=== PATIENT | female | born 1935 | race Caucasian/White ===

== ENCOUNTER 2017-03-11 13:49 | Emergency (ER) | payer MEDICARE, OTHER ==
[2017-03-11 15:27] VITALS: BP 177/90
--- NOTE | 2017-03-11 16:18 | UC ---
UC General HPI - HPI Summary HPI Summary: complaint of rash that started on her left side fo neck 2 days ago has become more swollen and painful someitmes it is extremely itchy thinks she might have gotrten bite by a spider denies fever or chills not taking any medication for pain - History of Current Complaint Chief Complaint: UCSkin Stated Complaint: RASH Time Seen by Provider: 03/11/17 16:11 Hx Obtained From: Patient - Allergy/Home Medications Allergies/Adverse Reactions: Allergies Allergy/AdvReac Type Severity Reaction Status Date / Time Penicillins Allergy Rash Verified 07/17/15 16:09 PMH/Surg Hx/FS Hx/Imm Hx Previously Healthy: Yes - glaucoma Cardiovascular History: Hypertension Respiratory History: COPD - Surgical History Surgical History: Yes Surgery Procedure, Year, and Place: LEFT ANKLE ORIF. Umbilical hernia repair. Tubal ligation. Cataract extraction. Cholecystectomy - Family History Known Family History: Positive: Cardiac Disease - Father , Hypertension - Sister Negative: Diabetes Family History: No FHx of COPD - Social History Occupation: Retired Lives: With Family Alcohol Use: Rare Substance Use Type: None Smoking Status (MU): Former Smoker When Did the Patient Quit Smoking/Using Tobacco: 1987 - Immunization History Most Recent Influenza Vaccination: 2016 Most Recent Tetanus Shot: up to date Most Recent Pneumonia Vaccination: 2016 Review of Systems Constitutional: Negative Skin: Rash Eyes: Negative ENT: Negative Respiratory: Negative Cardiovascular: Negative Gastrointestinal: Negative Genitourinary: Negative Motor: Negative Neurovascular: Negative Musculoskeletal: Negative Neurological: Negative Psychological: Negative All Other Systems Reviewed And Are Negative: Yes Physical Exam Triage Information Reviewed: Yes Appearance: No Pain Distress, Well-Nourished Vital Signs: Initial Vital Signs Temp 99.2 F 03/11/17 15:24 Pulse 78 03/11/17 15:24 Resp 16 03/11/17 15:24 BP 177/90 03/11/17 15:24 Pulse Ox 99 03/11/17 15:24 Vital Signs Reviewed: Yes Eyes: Positive: Conjunctiva Clear ENT: Positive: Pharynx normal, TMs normal Neck: Positive: No Lymphadenopathy Respiratory: Positive: Lungs clear, Normal breath sounds, No respiratory distress, No accessory muscle use Cardiovascular: Positive: RRR, No Murmur, Pulses Normal, Brisk Capillary Refill Abdomen Description: Positive: Nontender, Soft Bowel Sounds: Positive: Present Musculoskeletal: Positive: No Edema Neurological: Positive: Alert Psychological Exam: Normal Skin: Positive: Other - left side if neck -[id number] area of erythema surrounding insect bite site Course/Dx - Course Course Of Treatment: exam completed. will start on bactrim-discussed with pt that if area of erythema expands past marked area or gets a fever she will seek care in the emergency room - Differential Dx - Multi-Symptom Provider Diagnoses: cellulitis- left side of neck, elevated blood pressure Discharge - Discharge Plan Condition: Stable Disposition: HOME Prescriptions: Sulfamethox/Trimethoprim DS* [Bactrim DS 800/160 TAB*] 1 tab PO BID #14 tab Patient Education Materials: Cellulitis (ED) Referrals: Nabeel Ventura MD [Primary Care Provider] - Additional Instructions: Please start antibiotic as directed Increase fluids and rest Take acetaminophen or ibuprofen for fever or pain Please review your discharge instructions. If your symptoms do not improve please call your primary care provider or return to urgent care. CELLULITIS What is Cellulitis? Cellulitis is a bacterial infection of the skin and, sometimes, of the tissues beneath the skin. The skin normally has many types of bacteria on it, but intact skin is an effective barrier that keeps bacteria from entering and growing within the body. When there is a break in the skin, bacteria can enter the body and grow there, causing infection. The infection usually affects outer layers of the skin first, and then spreads deeper into body tissues. Cellulitis can affect any area of the body covered by skin, but it is most common on the face or lower part of the legs. Symptoms Might Include: Skin redness that increases in size as the infection spreads Tight, glossy, "stretched" appearance of the skin Pain or tenderness of the area The affected area may be warm or hot to the touch A thin red line (along a vein) from the cellulitis toward the heart Fever Chills, shaking Muscle aches pains Joint stiffness because of swelling around a joint Treatment Recommendations: The healthcare provider may have prescribed an antibiotic medicine. The medicine should be taken until it is completely gone, even if you are feeling better. If you stop taking the medicine early, the infection may not be completely gone, and the medication may not work the next time. If the infection is on your arm or leg, keep it elevated. You may use warm, wet compresses to relieve the pain and help healing. Soak a clean cloth in warm water, wring it out a little, and apply it to the affected site. Leave the soak in place for 15 minutes and repeat often throughout the day. Rest until the fever is gone and the pain and redness have lessened. You may take ibuprofen (Motrin, Advil), or acetaminophen (Tylenol) for pain. These will help ease some of the symptoms but will not cure the infection. Call Your Doctor or Return Here IF: Your fever does not go down with treatment, or it increases to more than 101 F. You are not starting to get better with the treatment within 24 to 36 hours. You have increasing pain, swelling, or chills. You feel drowsy and lethargic, or you have vomiting or diarrhea. You find the redness is spreading or there are red streaks coming from the infected area. The joint or bone under the infected skin becomes painful after the skin has started to heal. You have any new symptoms that worry you.
== END 2017-03-11 16:40 | disposition home or self-care (01) ==
LOC: UCEAST 13:49
DX: L03.221 Cellulitis of neck (principal); R03.0 Elevated blood-pressure reading, without diagnosis of hypertension; Z87.891 Personal history of nicotine dependence
CPT/HCPCS: 99212; G0463

== ENCOUNTER 2021-03-15 22:07 | Inpatient (IN) ==
[2021-03-15] MEDS ORDERED: methylPREDNISolone 125 mg 2 ML VIAL IV ONE (22:11)
[2021-03-15] MEDS ORDERED: Albuterol/Ipratropium NEB.SOL (2.5/0.5 MG) 3 ML NEB.SOLN INH ONE (22:11)
[2021-03-15 22:31] LABS: PO2 Arterial 68 mmHg (80-100)
[2021-03-15 22:33] LABS: PCO2 Arterial 96 mmHg (35-45)
[2021-03-15 23:04] LABS: ABS Lymphocytes 0.5 10^3/ul (1.0-4.8); ABS Monocytes 0.5 10^3/ul (0-0.8); ABS Neutrophils 5.6 10^3/ul (1.5-7.7); Eosinophil % 0.3 %; Hematocrit 34 % (35-47); Hemoglobin 11.1 g/dL (12.0-16.0); Lymphocyte % 7.9 %; Mean Corpuscular HGB Conc 33 g/dL (31-36); Mean Corpuscular Hemoglobin 30 pg (27-31); Mean Corpuscular Volume 93 fL (80-97); Mean Platelet Volume 8.7 fL (7.4-10.4); Nucleated Red Blood Cells % 0.1; Platelet Count 203 10^3/uL (150-450); Red Blood Count 3.65 10^6 /uL (3.70-4.87); Red Cell Distribution Width 15 % (10-15); White Blood Count 6.7 10^3/uL (3.5-10.8)
[2021-03-15 23:17] LABS: INR 1.08 (0.86-1.15)
[2021-03-15 23:22] LABS: Albumin 3.7 g/dL (3.2-5.2); Albumin/Globulin Ratio 1.2 (1-3); C Reactive Protein 28.71 mg/L (<8.01); Calcium 9.4 mg/dL (8.6-10.3); EGFR African American 94.4 (>60); EGFR Non-African American 78.1 (>60); Globulin 3.1 g/dL (2-4); Potassium 4.4 mmol/L (3.5-5.0); Total Bilirubin 0.5 mg/dL (0.2-1.0); Total Protein 6.8 g/dL (6.4-8.9)
[2021-03-15 23:25] LABS: Troponin I 0.01 ng/mL (<0.03)
[2021-03-15 23:27] LABS: CKMB ng/mL 3.6 ng/mL (0.6-6.3)
[2021-03-16] MEDS ORDERED: Albuterol/Ipratropium NEB.SOL (2.5/0.5 MG) 3 ML NEB.SOLN INH PRN ×2 (00:34→19:05)
[2021-03-16] MEDS ORDERED: Furosemide 20 mg/2 ml IV VIAL IV ONE (00:37)
[2021-03-16 01:05] LABS: PO2 Arterial 79 mmHg (80-100)
[2021-03-16 01:13] LABS: PCO2 Arterial 103 mmHg (35-45)
[2021-03-16 02:43] LABS: Urine Appearance Clear; Urine Bilirubin Negative (Negative); Urine Blood Negative (Negative); Urine Color Yellow; Urine Glucose Negative (Negative); Urine Ketones Negative (Negative); Urine Nitrite Negative (Negative); Urine Protein 1+(30 mg/dL) (Negative); Urine Specific Gravity 1.014 (1.002-1.030); Urine Urobilinogen Negative (Negative)
[2021-03-16 03:03] LABS: Urine Bacteria 1+ (Absent); Urine Red Blood Cell Trace(0-2/hpf) (Absent); Urine White Blood Cell Trace(0-5/hpf) (Absent)
[2021-03-16] MEDS: cefTRIAXone 1 gm/50 mL NS BAG 1 GM/50 ML BAG IVPB SCH (03:17)
[2021-03-16] MEDS ORDERED: Digoxin IV 0.5 MG/2 ML AMP (0.25 MG/ML) ONE (03:30)
[2021-03-16] MEDS ORDERED: Digoxin IV 0.5 MG/2 ML AMP (0.25 MG/ML) IV SLOW PU ONE (03:32)
[2021-03-16] MEDS ORDERED: Metoprolol Tartrate 5 mg VIAL 5 ml VIAL (1 mg/ml) IV ONE (03:50)
[2021-03-16] MEDS ORDERED: Iohexol 350 (CONTRAST) 500 ML MDV IV ONE (04:24)
[2021-03-16 04:31] LABS: Magnesium 1.9 mg/dL (1.9-2.7)
[2021-03-16] MEDS ORDERED: Magnesium Sulfate 2 gm BAG 2 GM/50 ML BAG IVPB ONE (04:51)
[2021-03-16 05:27] LABS: ABS Lymphocytes 0.1 10^3/ul (1.0-4.8); ABS Neutrophils 4.6 10^3/ul (1.5-7.7); Hematocrit 32 % (35-47); Hemoglobin 10.4 g/dL (12.0-16.0); Lymphocyte % 2.3 %; Mean Corpuscular HGB Conc 33 g/dL (31-36); Mean Corpuscular Hemoglobin 30 pg (27-31); Mean Corpuscular Volume 93 fL (80-97); Mean Platelet Volume 8.9 fL (7.4-10.4); Nucleated Red Blood Cells % 0.1; Platelet Count 196 10^3/uL (150-450); Red Blood Count 3.45 10^6 /uL (3.70-4.87); Red Cell Distribution Width 14 % (10-15); White Blood Count 4.8 10^3/uL (3.5-10.8)
[2021-03-16 05:43] LABS: EGFR Non-African American 74.4 (>60); Magnesium 1.8 mg/dL (1.9-2.7); Potassium 4.6 mmol/L (3.5-5.0)
[2021-03-16 07:31] LABS: PO2 Arterial 65 mmHg (80-100)
[2021-03-16 07:33] LABS: PCO2 Arterial 92 mmHg (35-45)
[2021-03-16] MEDS: methylPREDNISolone SOD 40 mg/ml 1 ml VIAL IV SCH ×2 (07:48→20:30)
[2021-03-16] MEDS ORDERED: SPIRIVA Respimat (tiotropium) 2.5 mcg/inh Inhaler INH SCH (09:00)
[2021-03-16] MEDS: DOXYcycline 100 MG in NS 0.9% 250 ml 250 ML IVPB SCH ×2 (09:11→20:30)
[2021-03-16] MEDS ORDERED: Furosemide 40 mg/4 ml IV VIAL IV ONE (09:26)
[2021-03-16] MEDS: Mometasone/Formoter 200/5 MDI INH SCH ×2 (10:00→22:50)
[2021-03-16] MEDS ORDERED: fentaNYL 100 mcg/2 ml 50 MCG/ML VIAL ONE (13:56)
[2021-03-16 16:57] LABS: Body Fluid Source Pleural Fluid
[2021-03-16] MEDS: PTO: Brinzolamide 1% OPHTH SOL(NF) BTL LEFT EYE SCH ×3 (17:12→20:20)
[2021-03-16] MEDS ORDERED: Albuterol/Ipratropium NEB.SOL (2.5/0.5 MG) 3 ML NEB.SOLN INH SCH (18:00)
[2021-03-16 18:10] LABS: Body Fluid Mono 5 %; Body Fluid Other Cells 8; Body Fluid Total Cells Counted 200; Body Fluid WBC 2999 /mcL
[2021-03-16 18:11] LABS: Body Fluid Appearance Cloudy; Body Fluid Color Yellow
[2021-03-16] MEDS ORDERED: Ondansetron 4 mg VIAL 2 MG/ML 2 ml VIAL ONE (18:28)
[2021-03-16] MEDS ORDERED: Albuterol/Ipratropium NEB.SOL (2.5/0.5 MG) 3 ML NEB.SOLN ONE (18:31)
[2021-03-16] MEDS: Albuterol/Ipratropium NEB.SOL (2.5/0.5 MG) 3 ML NEB.SOLN INH SCH (18:48)
[2021-03-16] MEDS ORDERED: Ondansetron 4 mg VIAL 2 MG/ML 2 ml VIAL IV ONE (20:00)
[2021-03-17] MEDS: Albuterol/Ipratropium NEB.SOL (2.5/0.5 MG) 3 ML NEB.SOLN INH SCH ×4 (01:18→20:33)
[2021-03-17] MEDS: cefTRIAXone 1 gm/50 mL NS BAG 1 GM/50 ML BAG IVPB SCH (03:16)
[2021-03-17 05:49] LABS: PO2 Arterial 166 mmHg (80-100)
[2021-03-17 05:51] LABS: PCO2 Arterial 90 mmHg (35-45)
[2021-03-17 06:21] LABS: ABS Lymphocytes 0.2 10^3/ul (1.0-4.8); ABS Monocytes 0.2 10^3/ul (0-0.8); ABS Neutrophils 5.4 10^3/ul (1.5-7.7); Hematocrit 32 % (35-47); Hemoglobin 10.4 g/dL (12.0-16.0); Lymphocyte % 3.4 %; Mean Corpuscular HGB Conc 33 g/dL (31-36); Mean Corpuscular Hemoglobin 30 pg (27-31); Mean Corpuscular Volume 93 fL (80-97); Mean Platelet Volume 8.8 fL (7.4-10.4); Platelet Count 196 10^3/uL (150-450); Red Blood Count 3.45 10^6 /uL (3.70-4.87); Red Cell Distribution Width 14 % (10-15); White Blood Count 5.8 10^3/uL (3.5-10.8)
[2021-03-17 06:38] LABS: Calcium 9.2 mg/dL (8.6-10.3); EGFR African American 55.8 (>60); EGFR Non-African American 46.1 (>60); Magnesium 2.3 mg/dL (1.9-2.7); Potassium 4.8 mmol/L (3.5-5.0)
[2021-03-17] MEDS: Mometasone/Formoter 200/5 MDI INH SCH (07:02)
[2021-03-17] MEDS: methylPREDNISolone SOD 40 mg/ml 1 ml VIAL IV SCH ×2 (08:04→21:03)
[2021-03-17] MEDS: DOXYcycline 100 MG in NS 0.9% 250 ml 250 ML IVPB SCH ×2 (08:07→21:03)
[2021-03-17] MEDS: PTO: Brinzolamide 1% OPHTH SOL(NF) BTL LEFT EYE SCH ×2 (08:08→21:20)
[2021-03-17] MEDS: Enoxaparin 40 MG/0.4 ML SYR SUBCUT SCH (12:13)
[2021-03-17] MEDS ORDERED: Saline NASAL DROPS 0.65% BTL BOTH NARES PRN (23:50)
[2021-03-18] MEDS: Albuterol/Ipratropium NEB.SOL (2.5/0.5 MG) 3 ML NEB.SOLN INH SCH ×4 (00:52→19:47)
[2021-03-18] MEDS: cefTRIAXone 1 gm/50 mL NS BAG 1 GM/50 ML BAG IVPB SCH (03:34)
[2021-03-18 06:36] LABS: Hematocrit 33 % (35-47); Hemoglobin 10.7 g/dL (12.0-16.0); Mean Corpuscular HGB Conc 33 g/dL (31-36); Mean Corpuscular Hemoglobin 30 pg (27-31); Mean Corpuscular Volume 92 fL (80-97); Mean Platelet Volume 8.9 fL (7.4-10.4); Platelet Count 188 10^3/uL (150-450); Red Blood Count 3.55 10^6 /uL (3.70-4.87); Red Cell Distribution Width 15 % (10-15); White Blood Count 6.1 10^3/uL (3.5-10.8)
[2021-03-18 06:58] LABS: Blood Urea Nitrogen 43 mg/dL (6-24); Calcium 9.1 mg/dL (8.6-10.3); Chloride 93 mmol/L (101-111); EGFR African American 70.9 (>60); EGFR Non-African American 58.6 (>60); Glucose 129 mg/dL (70-100); Sodium 137 mmol/L (135-145)
[2021-03-18 07:03] LABS: CO2 Carbon Dioxide 44 mmol/L (22-32)
[2021-03-18] MEDS: methylPREDNISolone SOD 40 mg/ml 1 ml VIAL IV SCH ×2 (08:06→20:43)
[2021-03-18] MEDS: PTO: Brinzolamide 1% OPHTH SOL(NF) BTL LEFT EYE SCH ×2 (08:57→20:51)
[2021-03-18] MEDS: DOXYcycline 100 MG in NS 0.9% 250 ml 250 ML IVPB SCH ×2 (08:57→20:34)
[2021-03-18 09:09] LABS: Magnesium 2.2 mg/dL (1.9-2.7); Phosphorus 3.3 mg/dL (2.5-5.0)
[2021-03-18 10:48] LABS: PCO2 Arterial 66 mmHg (35-45); PO2 Arterial 78 mmHg (80-100)
[2021-03-18] MEDS: Enoxaparin 40 MG/0.4 ML SYR SUBCUT SCH (11:54)
[2021-03-18 13:02] LABS: Lactate Dehydrogenase, BF 100 U/L
[2021-03-18 14:06] LABS: Glucose, BF 152 mg/dL
[2021-03-18 14:09] LABS: Albumin, BF 1.8 g/dL; Fluid Type, Albumin PLEURAL; Fluid Type, Protein, Total PLEURAL
[2021-03-19] MEDS: cefTRIAXone 1 gm/50 mL NS BAG 1 GM/50 ML BAG IVPB SCH (03:05)
[2021-03-19] MEDS: Albuterol/Ipratropium NEB.SOL (2.5/0.5 MG) 3 ML NEB.SOLN INH SCH ×3 (07:43→19:11)
[2021-03-19] MEDS: PTO: Brinzolamide 1% OPHTH SOL(NF) BTL LEFT EYE SCH ×2 (07:57→20:09)
[2021-03-19] MEDS: methylPREDNISolone SOD 40 mg/ml 1 ml VIAL IV SCH (07:57)
[2021-03-19 08:18] LABS: EGFR Non-African American 79.3 (>60); Magnesium 2.1 mg/dL (1.9-2.7); Phosphorus 3.2 mg/dL (2.5-5.0)
[2021-03-19 08:24] LABS: ABS Lymphocytes 0.3 10^3/ul (1.0-4.8); ABS Monocytes 0.5 10^3/ul (0-0.8); ABS Neutrophils 7.4 10^3/ul (1.5-7.7); Hematocrit 34 % (35-47); Hemoglobin 11.1 g/dL (12.0-16.0); Lymphocyte % 4.2 %; Mean Corpuscular HGB Conc 33 g/dL (31-36); Mean Corpuscular Hemoglobin 30 pg (27-31); Mean Corpuscular Volume 92 fL (80-97); Mean Platelet Volume 8.5 fL (7.4-10.4); Platelet Count 193 10^3/uL (150-450); Red Blood Count 3.67 10^6 /uL (3.70-4.87); Red Cell Distribution Width 15 % (10-15); White Blood Count 8.3 10^3/uL (3.5-10.8)
[2021-03-19] MEDS: DOXYcycline 100 MG in NS 0.9% 250 ml 250 ML IVPB SCH ×2 (09:14→19:50)
[2021-03-19] MEDS ORDERED: Lisinopril/HCTZ 10/12.5 TA(NF) PO SCH (10:00)
[2021-03-19] MEDS ORDERED: Magnesium Hydroxide LIQ 30 ML UDC PO PRN (12:59)
[2021-03-19] MEDS: Enoxaparin 40 MG/0.4 ML SYR SUBCUT SCH (13:19)
[2021-03-20] MEDS: cefTRIAXone 1 gm/50 mL NS BAG 1 GM/50 ML BAG IVPB SCH (02:11)
[2021-03-20] MEDS: Albuterol/Ipratropium NEB.SOL (2.5/0.5 MG) 3 ML NEB.SOLN INH SCH ×3 (07:11→19:22)
[2021-03-20] MEDS: DOXYcycline 100 MG in NS 0.9% 250 ml 250 ML IVPB SCH ×2 (10:02→20:42)
[2021-03-20] MEDS: PTO: Brinzolamide 1% OPHTH SOL(NF) BTL LEFT EYE SCH ×2 (10:11→20:42)
[2021-03-20] MEDS: Enoxaparin 40 MG/0.4 ML SYR SUBCUT SCH (14:31)
[2021-03-21] MEDS: cefTRIAXone 1 gm/50 mL NS BAG 1 GM/50 ML BAG IVPB SCH (02:26)
[2021-03-21] MEDS: Albuterol/Ipratropium NEB.SOL (2.5/0.5 MG) 3 ML NEB.SOLN INH SCH ×3 (08:14→19:45)
[2021-03-21] MEDS: PTO: Brinzolamide 1% OPHTH SOL(NF) BTL LEFT EYE SCH ×2 (08:58→21:44)
[2021-03-21] MEDS: DOXYcycline 100 MG in NS 0.9% 250 ml 250 ML IVPB SCH (08:59)
[2021-03-21] MEDS: Enoxaparin 40 MG/0.4 ML SYR SUBCUT SCH (13:49)
[2021-03-21 17:21] LABS: PCO2 Arterial 61 mmHg (35-45); PO2 Arterial 73 mmHg (80-100)
[2021-03-22] MEDS: Albuterol/Ipratropium NEB.SOL (2.5/0.5 MG) 3 ML NEB.SOLN INH SCH (07:34)
[2021-03-22] MEDS: PTO: Brinzolamide 1% OPHTH SOL(NF) BTL LEFT EYE SCH ×2 (10:07→21:38)
[2021-03-22] MEDS: Enoxaparin 40 MG/0.4 ML SYR SUBCUT SCH (12:55)
[2021-03-23] MEDS: PTO: Brinzolamide 1% OPHTH SOL(NF) BTL LEFT EYE SCH ×2 (09:59→20:48)
[2021-03-23] MEDS: Enoxaparin 40 MG/0.4 ML SYR SUBCUT SCH (13:22)
[2021-03-24] MEDS: PTO: Brinzolamide 1% OPHTH SOL(NF) BTL LEFT EYE SCH (09:10)
[2021-03-24] MEDS: Enoxaparin 40 MG/0.4 ML SYR SUBCUT SCH (14:42)
[2021-03-24 14:47] VITALS: BP 133/50
== END 2021-03-24 16:35 | disposition home or self-care (01) | DRG 189 ==
LOC: ED 22:07 → ICU 03-16 00:16 → MEDTELE 03-19 12:18
PROVIDERS: ADMIT Internal Medicine; ATTEND Hospitalist

== ENCOUNTER 2021-05-19 16:38 | Inpatient (IN) ==
[2021-05-19 18:06] LABS: ABS Lymphocytes 0.5 10^3/ul (1.0-4.8); ABS Monocytes 0.4 10^3/ul (0-0.8); ABS Neutrophils 4.8 10^3/ul (1.5-7.7); Eosinophil % 0.4 %; Hematocrit 33 % (35-47); Hemoglobin 10.6 g/dL (12.0-16.0); Lymphocyte % 8.1 %; Mean Corpuscular HGB Conc 33 g/dL (31-36); Mean Corpuscular Hemoglobin 30 pg (27-31); Mean Corpuscular Volume 92 fL (80-97); Mean Platelet Volume 9.2 fL (7.4-10.4); Platelet Count 207 10^3/uL (150-450); Red Blood Count 3.53 10^6 /uL (3.70-4.87); Red Cell Distribution Width 16 % (10-15); White Blood Count 5.7 10^3/uL (3.5-10.8)
[2021-05-19 18:17] LABS: PO2 Arterial 197 mmHg (80-100)
[2021-05-19 18:22] LABS: PCO2 Arterial 79 mmHg (35-45)
[2021-05-19 18:30] LABS: Albumin 3.8 g/dL (3.2-5.2); Albumin/Globulin Ratio 1.3 (1-3); Calcium 9.4 mg/dL (8.6-10.3); EGFR African American 82.3 (>60); Total Bilirubin 0.4 mg/dL (0.2-1.0); Total Protein 6.8 g/dL (6.4-8.9); Troponin I 0.01 ng/mL (<0.03)
[2021-05-19] MEDS ORDERED: Iohexol 350 (CONTRAST) 500 ML MDV IV ONE (19:12)
[2021-05-19] MEDS ORDERED: Al Hydrox/Mg Hydrox/Simet LIQ 30 ML UDC PO PRN (21:10)
[2021-05-19] MEDS ORDERED: Ondansetron 4 mg VIAL 2 MG/ML 2 ml VIAL IV PRN (21:10)
[2021-05-19] MEDS ORDERED: Furosemide 20 mg/2 ml IV VIAL IV ONE (21:13)
[2021-05-19 22:35] LABS: Rapid COVID-19 Molecular Undetected (Undetected)
[2021-05-19] MEDS ORDERED: Albuterol HFA INHALER 8 gm MDI INH PRN (23:32)
[2021-05-20] MEDS: Enoxaparin 40 MG/0.4 ML SYR SUBCUT SCH ×2 (00:57→22:59)
[2021-05-20] MEDS: BRINZOLAMIDE 1% LEFT EYE SCH ×3 (01:52→11:45)
[2021-05-20] MEDS: Albuterol HFA INHALER 8 gm MDI INH SCH ×4 (04:44→20:26)
[2021-05-20] MEDS: SPIRIVA Respimat (tiotropium) 2.5 mcg/inh Inhaler INH SCH (09:15)
[2021-05-20] MEDS ORDERED: Furosemide 20 mg/2 ml IV VIAL IV SLOW PU ONE (09:43)
[2021-05-20] MEDS: PTO: Brinzolamide 1% OPHTH SOL(NF) BTL LEFT EYE SCH ×2 (11:44→23:00)
[2021-05-21] MEDS: Albuterol HFA INHALER 8 gm MDI INH SCH ×4 (03:44→18:19)
[2021-05-21 06:09] LABS: Calcium 8.8 mg/dL (8.6-10.3); EGFR Non-African American 74.4 (>60); Potassium 3.6 mmol/L (3.5-5.0)
[2021-05-21] MEDS: SPIRIVA Respimat (tiotropium) 2.5 mcg/inh Inhaler INH SCH (07:35)
[2021-05-21] MEDS: PTO: Brinzolamide 1% OPHTH SOL(NF) BTL LEFT EYE SCH ×2 (09:42→20:41)
[2021-05-21] MEDS: Enoxaparin 40 MG/0.4 ML SYR SUBCUT SCH (20:41)
[2021-05-22] MEDS: Albuterol HFA INHALER 8 gm MDI INH SCH ×3 (04:39→13:27)
[2021-05-22] MEDS: SPIRIVA Respimat (tiotropium) 2.5 mcg/inh Inhaler INH SCH (08:24)
[2021-05-22] MEDS: PTO: Brinzolamide 1% OPHTH SOL(NF) BTL LEFT EYE SCH (09:28)
[2021-05-22 15:13] VITALS: BP 119/59
[2021-05-22] MEDS ORDERED: Perflutren Lipid Microsphere 3 ML VIAL ONE (17:21)
== END 2021-05-22 18:00 | disposition home or self-care (01) | DRG 189 ==
LOC: ED 16:38 → MED 23:02
PROVIDERS: ADMIT Hospitalist; ATTEND Hospitalist